=== PATIENT | male | born 1945 | race Caucasian/White ===

== ENCOUNTER 2020-12-15 11:13 | Outpatient (REF) | payer MEDICARE, SELFPAY ==
[2020-12-15 13:54] LABS: MANUAL DIFF FLAG NO
[2020-12-15 14:04] LABS: Basophils Percent Auto 0.6 % (0-2); Eosinophils Absolute Auto 0.3 X10*3/uL (0.0-0.4); Eosinophils Percent Auto 4.1 % (0-4); Hematocrit 39.8 % (42-52); Hemoglobin 13.2 g/dl (14.0-18.0); Imm Gran Abs Auto 0.04 X10*3/uL (0.00-0.03); Imm Gran Pct Auto 0.6 % (0.0-0.4); Lymphocytes Absolute Auto 1.7 X10*3/uL (1.2-4.9); Lymphocytes Percent Auto 23.6 % (20-40); Mean Corpuscular HGB Conc 33.2 g/dl (31.0-36.0); Mean Corpuscular Hemoglobin 31.6 pg (27.0-33.0); Mean Corpuscular Volume 95.2 fL (80-98); Mean Platelet Volume 11.8 fL (9.4-12.4); Monocytes Percent Auto 14.1 % (2-11); Platelet Count 176 X10*3/uL (160-400); Red Blood Count 4.18 X10*6/uL (4.60-5.80); Red Cell Distribution Width 14.3 % (11.0-16.0); White Blood Count 7.1 X10*3/uL (4.8-10.8)
[2020-12-15 14:13] LABS: Estimated Average Glucose 123 mg/dL; Hemoglobin A1c % 5.9 %
[2020-12-15 14:40] LABS: Alanine Aminotransferase 13 U/L (0-40); Alkaline Phosphatase 92 U/L (39-117); Anion Gap 15 (12-20); Aspartate Amino Transferase 16 U/L (5-37); Bilirubin Total 0.4 mg/dL (0.0-1.0); Blood Urea Nitrogen 19 mg/dL (9-16); Calcium 8.5 mg/dL (8.4-10.2); Carbon Dioxide 23 mmol/L (22-29); Chloride 108 mmol/L (96-108); Cholesterol 255 mg/dL; Estimated Glomerular Filt Rate 54; Glucose Fasting 114 mg/dL (60-99); HDL Cholesterol 37 mg/dL; LDL Cholesterol Calculated 174 mg/dl; Potassium 4.6 mmol/L (3.3-5.1); Sodium 141 mmol/L (135-145); Total Protein 6.4 g/dL (6.5-8.0); Triglycerides 220 mg/dL
[2020-12-15 15:31] LABS: Creatinine Urine 181.46 mg/dL; Microalbum/Creatinine Ratio Ur 9.9 ug/mg cr
== END 2020-12-15 11:14 | disposition home or self-care (01) ==
LOC: HO.10HDL 11:13
PROVIDERS: Visit Provider Nurse Practitioner Family
DX: D22.9 Melanocytic nevi, unspecified (principal)
CPT/HCPCS: 36415; 80053; 80061; 82043; 83036; 85025

== ENCOUNTER 2022-03-08 13:57 | Outpatient (REF) | payer MEDICARE, SELFPAY ==
--- NOTE | ~2022-03-08 | MR_ITS ---
MRI OF THE BRAIN WITHOUT IV CONTRAST INDICATION: Amnesia. COMPARISON: None available. TECHNIQUE: Multiplanar multisequence MR imaging of the brain was obtained without IV contrast. FINDINGS: There is no hydrocephalus, extra-axial surface collection, or herniation. There is global cerebral volume loss, there is mild chronic microangiopathy, and there are chronic infarcts within the left cerebellum, the left occipital lobe, and the left parietal lobe. The major flow voids at the skull base are preserved. There is no acute infarct on diffusion-weighted imaging. There is no intracranial hemorrhage on the gradient recalled echo acquisition. The midline structures are normal. The cerebellar tonsils are normally positioned. The cerebellum and brainstem are normal. The craniocervical junction is normal. Osseous marrow signal intensity is homogenous. The visualized soft tissues are unremarkable. 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 MR/MR head/brain wo con IMPRESSION: - No acute intracranial findings. - There is global cerebral volume loss, there is mild chronic microangiopathy, and there are chronic infarcts within the left cerebellum, the left occipital lobe, and the left parietal lobe. 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
--- NOTE | 2022-03-08 14:16 | ECG_ITS ---
Test Reason : r00.1 Blood Pressure : / mmHG Vent. Rate : 058 BPM Atrial Rate : 058 BPM P-R Int : 000 ms QRS Dur : 096 ms QT Int : 410 ms P-R-T Axes : 000 -46 190 degrees QTc Int : 402 ms Likely sinus rhythm Premature atrial complexes Left axis deviation Inferior infarct , age undetermined Anterior infarct , age undetermined T wave abnormality, consider lateral ischemia Abnormal ECG No previous ECGs available Referred By: Wesly Hanna Electronically Signed By:OLINDA NEWELL
[2022-03-08 14:19] LABS: MANUAL DIFF FLAG NO
[2022-03-08 14:29] LABS: Basophils Percent Auto 0.6 % (0-2); Eosinophils Absolute Auto 0.2 X10*3/uL (0.0-0.4); Eosinophils Percent Auto 3.7 % (0-4); Hematocrit 42.7 % (42.0-52.0); Hemoglobin 14.6 g/dl (14.0-18.0); Imm Gran Abs Auto 0.04 X10*3/uL (0.00-0.03); Imm Gran Pct Auto 0.6 % (0.0-0.4); Lymphocytes Absolute Auto 1.7 X10*3/uL (1.2-4.9); Lymphocytes Percent Auto 25.8 % (20-40); Mean Corpuscular HGB Conc 34.2 g/dl (31.0-36.0); Mean Corpuscular Hemoglobin 32.3 pg (27.0-33.0); Mean Corpuscular Volume 94.5 fL (80.0-98.0); Mean Platelet Volume 11.5 fL (9.4-12.4); Monocytes Absolute Auto 0.8 X10*3/uL (0.1-1.2); Monocytes Percent Auto 12.3 % (2-11); Neutrophils Absolute Auto 3.7 x10*3/uL (2.0-8.3); Platelet Count 151 X10*3/uL (160-400); Red Blood Count 4.52 X10*6/uL (4.60-5.80); Red Cell Distribution Width 14.1 % (11.0-16.0); White Blood Count 6.5 X10*3/uL (4.8-10.8)
[2022-03-08 14:56] LABS: Alanine Aminotransferase 20 U/L (0-40); Albumin Level 3.8 g/dL (3.5-5.0); Alkaline Phosphatase 128 U/L (39-117); Anion Gap 13 (12-20); Aspartate Amino Transferase 24 U/L (5-37); Bilirubin Total 0.6 mg/dL (0.0-1.0); Blood Urea Nitrogen 14 mg/dL (9-16); Calcium 8.7 mg/dL (8.4-10.2); Carbon Dioxide 24 mmol/L (22-29); Chloride 107 mmol/L (96-108); Cholesterol 129 mg/dL; Estimated Glomerular Filt Rate 51; Glucose Random 129 mg/dL (60-115); HDL Cholesterol 32 mg/dL; LDL Cholesterol Calculated 71 mg/dl; Potassium 4.8 mmol/L (3.3-5.1); Sodium 139 mmol/L (135-145); Total Protein 6.1 g/dL (6.5-8.0); Triglycerides 131 mg/dL
[2022-03-08 15:01] LABS: Estimated Average Glucose 126 mg/dL
[2022-03-08 15:17] LABS: Prostate Specific Antigen Scr 1.42 ng/mL (<0.05-4.0); TSH reflex Free T4 3.07 uIU/mL (0.32-4.0)
== END 2022-03-08 13:58 | disposition home or self-care (01) ==
LOC: HO.MRI 13:57
PROVIDERS: PCP Internal Medicine; Visit Provider Nurse Practitioner Family
DX: Z00.00 Encounter for general adult medical examination without abnormal findings (principal); Z12.5 Encounter for screening for malignant neoplasm of prostate; R41.3 Other amnesia; R00.1 Bradycardia, unspecified; R01.1 Cardiac murmur, unspecified; E78.00 Pure hypercholesterolemia, unspecified; I10 Essential (primary) hypertension; E11.9 Type 2 diabetes mellitus without complications
CPT/HCPCS: 36415; 70551; 80053; 80061; 83036; 84153; 84443; 85025; 93005

== ENCOUNTER 2022-05-22 09:20 | Day surgery (SDC) | payer MEDICARE, SELFPAY ==
[2022-05-16 09:34] VITALS: BMI 37.5
--- NOTE | 2022-05-18 09:30 | MHC.SHP ---
Pre-Procedural Eval Section A Date of Service: 05/18/22 The patient is an INPATIENT: No Changes since office visit: No Cold of Flu in the past 2 weeks, No New Medical Problems, No Changes in Medication and No Patient answered all questions The History & Physical has been completed within 30 days and I have reviewed it.: Yes Section B Chief Complaint: cataract Allergies: Allergies Allergy/AdvReac Type Severity Reaction Status Date / Time lisinopril AdvReac Intermediate Cough Verified 05/16/22 09:46 Plan Diagnosis/Plan: Unchanged I have reviewed the history and physical and performed a pertinent physical examination on my patient. No changes have occurred unless specified.
--- NOTE | 2022-05-19 10:13 | P.CONAN_ITS ---
Documented by User: Felecia Munguia NP 05/19/22 10:14 HPI - Anesthesia Eval Consult details Narrative: 77yo M for Right Cataract Extraction IOL Insertion PCP cleared No previous cataract on record [facility] Active Problems Active Problems: All Active Problems (Updated 05/16/22 @ 13:33 by CHASE Sebastian) Obesity (BMI 30-39.9) (Acute) Preoperative clearance (Acute) Physical exam (Acute) Hypertension (Acute) Diabetes mellitus type II, controlled, with no complications (Acute) Cataract, bilateral (Acute) Bradycardia (Acute) Murmur (Acute) Memory loss (Acute) History of coronary artery bypass graft (Acute) Alzheimer disease (Acute) Encounter for diabetic foot exam (Acute) Wound of skin (Acute) Atypical mole (Acute) Past Medical History Medical History Alzheimer disease Atypical mole DM type 2 (diabetes mellitus, type 2) Encounter for diabetic foot exam History of CVA in adulthood History of falling Skin cancer Wound of skin Family History Family History Mother Alzheimer's dementia Father Parkinson's disease Surgical History Surgical History History of heart bypass surgery History of intravascular stent placement Social History Social History Housing: House Are you a primary pediatric critical care nurse to a significant other at home: No Do you presently have visiting nurse or other home services: Yes (Home Health Aides) Alcohol intake: never Patient Tobacco Use Status: Never used Tobacco e-Cigarette/Vaping Use: Never Used Second Hand Smoke Exposure: No Use of substances other than those prescribed or required for medical reasons: No Have you been hit, kicked, punched, or otherwise hurt by someone within the past year? If so, by whom?: No Are you DNR?: No Advance Directives: No Advance Directives Information Provided: Yes (Given to daughter) Advance Directives on File: No Recently lost weight without trying: No Eating poorly because of decreased appetite: No Nutrition Risks: No Nutritional Risk service: No Current occupational status: retired Cognitive needs: No Hearing needs: No Vision needs: Yes (Glasses) Meds Allergies Allergy/AdvReac Type Severity Reaction Status Date / Time lisinopril AdvReac Intermediate Cough Verified 05/16/22 09:46 Home Medications Medication Instructions Recorded Confirmed Last Taken Type aspirin 81 mg tablet,delayed 81 mg PO DAILY 04/19/22 05/16/22 Unknown History release donepezil 5 mg tablet 5 mg PO DAILY 04/19/22 05/16/22 Unknown History Exam Exam Date and Time: May 19, 2022 1013 Height,Weight and Vital Signs: Height 5 ft 3 in Weight 96.162 kg Pertinent Lab Results Pertinent Lab Results: Laboratory Tests 03/08/22 03/08/22 14:17 14:17 WBC 6.5 Hgb 14.6 Hct 42.7 Plt Count 151 L Sodium 139 Potassium 4.8 Chloride 107 Carbon Dioxide 24 BUN 14 Creatinine 1.35 Assessment and Plan Assessment Anesthesia Assessment: Chart Reviewed Documented by User: Lacy Landaverde MD 05/22/22 14:28 HPI - Anesthesia Eval Consult details Narrative: 77yo M for Right Cataract Extraction IOL Insertion PCP cleared No previous cataract on record Addendum. 12:28pm- Patient here for cataract surgery. Afib on monitor. Confirmed on 12 lead EKG. New onset. Patient had appointment to see cardiology in June for new onset heart murmur. EKG 03/08/22 ?Likely sinus rhythm. Premature atrial complexes. Left axis deviation.Inferior infarct , age undetermined.Anterior infarct , age undetermined. T wave abnormality, consider lateral ischemia. Abnormal ECG.No previous ECGs available. Patient recently diagnosed with dementia. Does not know why he's here. Also in termittent coughing. I am concerned about patient being co-operative enough to remain still for surgery and may need general anesthesia. Discussed with senior [employer] network engineer and agrees that it would be more prudent for patient to be worked up and optimized before elective surgery. Primary care doctor informed. [facility] Past Medical History Medical History Alzheimer disease Atypical mole DM type 2 (diabetes mellitus, type 2) Encounter for diabetic foot exam History of CVA in adulthood History of falling Skin cancer Wound of skin Family History Family History Mother Alzheimer's dementia Father Parkinson's disease Family history of problems with anesthesia: No (per patient's daughter) Surgical History Surgical History History of heart bypass surgery History of intravascular stent placement History of Problems with Anesthesia: No (Per patient's daughter) Social History Social History Housing: House Are you a primary pediatric critical care nurse to a significant other at home: No Do you presently have visiting nurse or other home services: Yes (Home Health Aides) Alcohol intake: never Patient Tobacco Use Status: Never used Tobacco e-Cigarette/Vaping Use: Never Used Second Hand Smoke Exposure: No Use of substances other than those prescribed or required for medical reasons: No Have you been hit, kicked, punched, or otherwise hurt by someone within the past year? If so, by whom?: No Are you DNR?: No Advance Directives: No Advance Directives Information Provided: Yes (Given to daughter) Advance Directives on File: No Recently lost weight without trying: No Eating poorly because of decreased appetite: No Nutrition Risks: No Nutritional Risk service: No Current occupational status: retired Cognitive needs: No Hearing needs: No Vision needs: Yes (Glasses) Meds Allergies Allergy/AdvReac Type Severity Reaction Status Date / Time lisinopril AdvReac Intermediate Cough Verified 05/16/22 09:46 Home Medications Medication Instructions Recorded Confirmed Last Taken Type aspirin 81 mg tablet,delayed 81 mg PO DAILY 04/19/22 05/16/22 Unknown History release donepezil 5 mg tablet 5 mg PO DAILY 04/19/22 05/16/22 Unknown History Exam Airway Mallampati Class: II TM Dist: >3cm Neck ROM: Full Heart: Irregularly irregular Lungs: ? Occasional wheeze Assessment and Plan Assessment Anesthesia Assessment: Anesthesia Plan Discussed (Patient with newly diagnosed dementia. Does not know why he is here or his medical history. Does not know he has had bypass surgery. His daughter is here with him and states that he signs his own permits. Will have him sign and his daughter cosign. Discussed with Vera Valiente & Zuly. Ok to procee) Final Anesthetic Review Family History of Problems with Anesthesia: No (per patient's daughter) History of Problems with Anesthesia: No (Per patient's daughter) NPO: Yes ASA Class: III Final Preanesthetic Review: No Changes in Pt Med Stat, Meds/Allgs Chart Reviewed, Consent Obtained/Reviewed and Anes Risks/Benef Reviewed Patient Risk: High Procedure Risk: Low Assessment/Block/Sedation in SS: Assess/Block/Sedation-SS Anesthetic Plan Anesthetic Plan: GA and MAC:
--- NOTE | 2022-05-22 | ECG_ITS ---
Test Reason : RHYTHM CHECK Blood Pressure : / mmHG Vent. Rate : 047 BPM Atrial Rate : 000 BPM P-R Int : 000 ms QRS Dur : 094 ms QT Int : 454 ms P-R-T Axes : 000 -36 196 degrees QTc Int : 401 ms Atrial fibrillation with slow ventricular response Left axis deviation Inferior infarct (cited on or before 08-MAR-2022) Anterior infarct (cited on or before 08-MAR-2022) T wave abnormality, consider lateral ischemia Abnormal ECG When compared with ECG of 08-MAR-2022 14:17, Atrial fibrillation has replaced Normal sinus rhythm Referred By: Lacy Landaverde Electronically Signed By:ASAD FIELDS MD
[2022-05-22 10:48] VITALS: BP 113/62; PULSE 59; RESP 18; TEMP 36.4; O2SAT 97
[2022-05-22] MEDS: Tetracaine HCl/PF 0.5% Oph Sol 4 ML DROPS 1 DROP EYE-RIGHT (10:53)
[2022-05-22] MEDS: Cyclopentolate 1 % Ophth Sol 2 ML DRPBTL 1 DROP EYE-RIGHT ×3 (10:55→11:03)
[2022-05-22] MEDS: Tropicamide 1 % Ophth Sol 3 ML BTL 1 DROP EYE-RIGHT ×2 (10:56→11:00)
[2022-05-22] MEDS: Phenylephrine HCL 2.5% Oph SoL 2 ML BOTTLE 1 DROP EYE-RIGHT ×3 (10:58→11:06)
[2022-05-22] MEDS: Lactated Ringers 500 ML 50 ML IV (11:13)
--- NOTE | 2022-05-22 12:03 | HO.PNOPHT ---
Ophthalmology Procedure Procedure Date of Service: 05/22/22 Ophthalmology Viscoelastic: Healon Duefrantz Dual Pack Pro Ophthalmology Lenses: LUC [id number]
--- NOTE | 2022-05-22 13:20 | PC.NURSE ---
3 Lead EKG appeared patient to be afib, BBB, with inverted T waves. Extensive heart history. Dr Landaverde notified, EKG from 02/2022 pulled up for comparison. 12 lead EKG performed at bedside - new onset afib noted. After discussion between Dr Landaverde, PCP Dr Thibodeaux & Dr Rae d/t possible need of general anesthesia- patient cancelled for further cardiac workup.
== END 2022-05-22 18:04 | disposition home or self-care (01) ==
LOC: HO.SSS 09:21
PROVIDERS: PCP Internal Medicine; Visit Provider Ophthalmology
DX: H25.11 Age-related nuclear cataract, right eye (principal); Z53.8 Procedure and treatment not carried out for other reasons; R94.31 Abnormal electrocardiogram [ECG] [EKG]
CPT/HCPCS: 93005; J3300

== ENCOUNTER → 2022-06-27 14:07 | Outpatient (BNVA) | payer MEDICARE, SELFPAY | PROVIDERS: PCP Internal Medicine; Referring Provider Internal Medicine; Visit Provider Internal Medicine | DX: Z01.810 Encounter for preprocedural cardiovascular examination (principal); I25.10 Atherosclerotic heart disease of native coronary artery without angina pectoris; I48.19 Other persistent atrial fibrillation; Z95.1 Presence of aortocoronary bypass graft | CPT/HCPCS: 99202 ==

== ENCOUNTER → 2022-07-24 12:57 | Outpatient (REF) | payer MEDICARE, SELFPAY ==
--- NOTE | 2022-07-24 13:01 | CA_ITS ---
Transthoracic Echocardiogram Patient (Last, First, Middle): Jeffery Warren, Gender: Male Date of : 1945 Age: 77 Procedure Date: 07/24/2022 Procedure Type: Transthoracic Echocardiogram Location: OP Height: 162.56 cm Weight: 90.72 kg BSA: 1.96 m2 Heart Rate: 46 bpm BP: 110 / 80 mmHg Director Insurance: SANJANA Referring MD: Gume Toth MD Serv[employer]en[employer] Administrator Developer: Alvino Rae MD Symptoms: I25.10 - Atherosclerotic heart disease of yocha dehe coronary artery without... Study Quality: Poor/Contrast ECG Rhythm: Atrial Fibrillation Conclusions: - 1. Technically limited study despite use of contrast agent. 2. LV systolic function appears mildly depressed with LVEF of 45 50% with regional wall motion abnormality suggestive underlying coronary artery disease 3. [id number] aortic stenosis 4. Possible mild enlargement of left atrium Findings Procedure Information Contrast agent, definity, is being given per protocol without apparent complications. Left Ventricle The left ventricle was not well visualized. Normal left ventricular cavity size. There is normal left ventricular wall thickness. The left ventricular systolic function is mildly decreased. The visually estimated ejection fraction is between 45-50%. Diastolic function is indeterminate on the basis of available data. Wall Motion Rest Echo Findings The apex segment is akinetic. All other scored wall segments showed normal motion. Right Ventricle The right ventricle was not well visualized. Atria The left atrium is mildly dilated. Interatrial shunt cannot be excluded. The right atrium was not well visualized. Aortic Valve The aortic valve was not well visualized. There is moderate calcification of the aortic valve. There is mild to moderate aortic valve stenosis. There is no aortic valve regurgitation. Mitral Valve The mitral valve was not well visualized. There is mild mitral annular calcification. There is trace mitral valve regurgitation. There is no mitral valve stenosis. Pulmonic Valve The pulmonic valve was not well visualized. Tricuspid Valve Tricuspid regurgitation envelope is inadequate for calculation of right ventricular systolic pressure. Normal right atrial pressure. Great Vessels The aorta was not well visualized. The pulmonary artery was not well visualized. Venous The inferior vena cava is normal in size and collapses greater than 50% with inspiration. Pericardium/Pleural The pericardium was not well visualized. Prior Study Comparison No prior study available for comparison. Measurements 2D Linear Measurements IVSd: 1.08 0.6-0.9/0.6-1.0 cm LVIDd: 4.38 3.9-5.3/4.2-5.9 cm LVIDd Index: 2.23 2.4-3.2/2.2-3.1 cm/m2 LVIDs: 3.32 2.0-3.6 cm LVPWd: 1.10 0.7-1.1 cm LA Diam: 3.60 2.7-3.8/3.0-4.0 cm LAIDs Index: 1.84 1.5-2.3 cm/m2 LV Mass: 206.20 67-162/88-224 g LV Mass Index: 105.21 43-95/49-115 g/m2 LVOT Diam: 2.20 3.0+(-)1.3 cm Mitral Valve MV Pk E: 0.97 MV Decel Time: 262.00 PHT: 77.00 MVA PHT: 2.86 Decel Wallace: 3.69 Aortic Valve AoV Pk Wade: 2.56 AoV Mn Wade: 1.78 AoV VTI: 0.54 AoV Pk Grad: 26.00 Aov Mn Grad: 15.00 GONZALO Cont.VTI: 1.46 LVOT LVOT Pk Wade: 0.96 LVOT Mn Wade: 0.66 LVOT VTI: 0.21 LVOT Pk Grad: 4.00 LVOT Mn Grad: 2.00 LVOT Diam: 2.20 LVOT Area: 3.80 Diastolic Function MV Pk E: 0.97 Right Ventricle TAPSE (mm): 10.70 TVS' Wade: 5.50 Tricuspid Valve RA Press: 3.00 Great Vessels Aorta Sinus of Valsalva: 3.70 2.0-3.5 cm Ao Asc: 3.60 2.1-3.4 cm Pulmonary Valve PV Pk Wade: 0.92 Peak PV Grad: 3.00 Updated in Other Vendor System with Status of Final Alvino Rae MD electronically signed on 07/24/2022 5:59:44 PM with status of Final
--- NOTE | 2022-07-24 13:02 | HM_ITS ---
Conclusion: 1. Patient was monitored for total period of 3 days. 2. Baseline rhythm was atrial fibrillation with lowest heart rate of 32 beats per minute with average heart of 52 beats per minute on the bradycardic side with frequent atrial fibrillation with slow ventricular response 3. Multiple pauses greater than 2.5 seconds noted with no significant pauses greater than 5 seconds noted with longest pause of 3.5 seconds happening at 12:54 4. Total of 1279 PVCs accounting for 0.56% of total burden account for occasional PVCs 5. Multiple short salvos of nonsustained VT, longest of 5 beats and the fastest of 4 beats at 143 beats per minute, could represent AFib with aberrancy 6. No patient reported events MTDD
== END ==
LOC: HO.CARD 12:57
PROVIDERS: PCP Internal Medicine; Visit Provider Internal Medicine
DX: I48.19 Other persistent atrial fibrillation (principal)
CPT/HCPCS: 93242; 93306; Q9957

== ENCOUNTER → 2022-08-01 10:33 | Outpatient (REF) | payer MEDICARE, SELFPAY ==
--- NOTE | ~2022-08-01 | NM_ITS ---
Myocardial perfusion study Indication: Persistent atrial fibrillation to evaluate for myocardial ischemia Technique: The patient was brought in for a Lexiscan perfusion study on 08/01/2022. Patient performed low-level exercise and was injected 0.4 mg of Lexiscan intravenously. Within a minute of injection, 30 mCi of sestamibi was given intravenously. Images were obtained using the SPECT gamma camera interlaced with the gating device. Images were obtained in supine position. Resting perfusion study was performed on 08/02/2022. Patient was administered 30 mCi of sestamibi intravenously at rest. Images were then obtained in supine position. Images obtained with and without CT attenuation. Total DLP 94 mGycm. Images were processed with the software and compared side to side in short axis, horizontal long axis and vertical long axis views. Findings: The stress perfusion study showed non attenuated images show large area of absent uptake in the apex and adjacent inferoapical wall of the LV myocardium. Is also mildly reduced uptake in the basal and mid inferior as well as inferolateral wall of the LV myocardium. Attenuation corrected images show large area of absent uptake in the apex and adjacent anteroapical and inferoapical wall of the LV myocardium there is minimally reduced uptake in the inferolateral wall of the LV myocardium.. The gated study shows normal LV systolic function with calculated LVEF of 59%. LV cavity is mildly dilated size. The gated study shows reduced wall thickening and contraction of apical segments. Resting study shows non attenuated images show large area of absent uptake the apex and adjacent inferoapical wall with some improvement in the anteroapical wall of the LV myocardium. Mildly reduced uptake in the inferior as well as inferolateral wall of the LV myocardium. Attenuation corrected images shows large area of absent uptake in the apex and inferoapical wall of the LV myocardium with some element in the anterior portion of the apical wall.. Gating at rest reveals apical wall motion abnormality with ejection fraction at 67%. The findings are consistent with large area of transmural infarct of the apex and adjacent inferoapical wall with some trang-infarct ischemia with nontransmural infarct of the inferolateral wall.. NM/NM cardiolite stress test Impression: 1. Myocardial perfusion imaging study shows large transmural infarct of the apex and inferoapical wall with some trang-infarct ischemia 2. Gated LVEF is 59% with stress and 67% with stress 3. Transient ischemic dilatation present EKG is nondiagnostic for ischemia
--- NOTE | 2022-08-01 10:35 | CA_ITS ---
Acquisition Time: 2022-08-01 10:40:09 Total Exercise Time: 00:02:00 Test Indications: Abnormal ECG Medications: ASA ATORVASTATIN CARVEDILOL HCTZ DONAPAZIL Protocol: LEXISCAN Max HR: 082 BPM 57% of Pred: 142 BPM Max BP: 122/074 mmHG Max Work Load: 1.0 METS Pharmacological stress test with Lexiscan injection, while sitting and kicking his legs and moving right arm, without anginal symptoms, with isolated PVCs, with normotensive response to injection, with nondiagnostic EKG for ischemia. Nuclear images pending. Test reviewed with Dr Toth. Referred By: Gume Toth Overread By: NAILA JEFFERSON
== END ==
LOC: HO.CARD 10:33
PROVIDERS: Visit Provider Internal Medicine
DX: I48.91 Unspecified atrial fibrillation (principal); Z95.1 Presence of aortocoronary bypass graft
CPT/HCPCS: 78452; 93017; A9500; J0280; J2785

== ENCOUNTER → 2022-08-23 15:06 | Outpatient (BNVA) | payer MEDICARE, SELFPAY | PROVIDERS: PCP Internal Medicine; Referring Provider Internal Medicine; Visit Provider Internal Medicine | DX: Z01.810 Encounter for preprocedural cardiovascular examination (principal); I25.10 Atherosclerotic heart disease of native coronary artery without angina pectoris; I48.19 Other persistent atrial fibrillation; Z95.1 Presence of aortocoronary bypass graft; Z95.5 Presence of coronary angioplasty implant and graft | CPT/HCPCS: 99212 ==

== ENCOUNTER 2023-02-12 11:33 | Outpatient (REF) | payer MEDICARE, SELFPAY ==
[2023-02-12 11:54] LABS: MANUAL DIFF FLAG NO
[2023-02-12 12:47] LABS: Basophils Percent Auto 0.4 % (0-2); Eosinophils Absolute Auto 0.2 X10*3/uL (0.0-0.4); Eosinophils Percent Auto 2.8 % (0-4); Hemoglobin 14.7 g/dl (14.0-18.0); Imm Gran Abs Auto 0.02 X10*3/uL (0.00-0.03); Imm Gran Pct Auto 0.3 % (0.0-0.4); Lymphocytes Absolute Auto 1.6 X10*3/uL (1.2-4.9); Lymphocytes Percent Auto 22.2 % (20-40); Mean Corpuscular HGB Conc 34.2 g/dl (31.0-36.0); Mean Corpuscular Hemoglobin 32.5 pg (27.0-33.0); Mean Corpuscular Volume 95.1 fL (80.0-98.0); Mean Platelet Volume 10.9 fL (9.4-12.4); Monocytes Absolute Auto 0.9 X10*3/uL (0.1-1.2); Monocytes Percent Auto 12.1 % (2-11); Neutrophils Absolute Auto 4.4 x10*3/uL (2.0-8.3); Neutrophils Percent Auto 62.2 % (45-73); Platelet Count 175 X10*3/uL (160-400); Red Blood Count 4.52 X10*6/uL (4.60-5.80); Red Cell Distribution Width 14.6 % (11.0-16.0); White Blood Count 7.1 X10*3/uL (4.8-10.8)
[2023-02-12 12:54] LABS: Estimated Average Glucose 131 mg/dL; Hemoglobin A1c % 6.2 %
[2023-02-12 13:17] LABS: Anion Gap 13 (12-20); Blood Urea Nitrogen 13 mg/dL (9-16); Calcium 8.6 mg/dL (8.4-10.2); Carbon Dioxide 22 mmol/L (22-29); Chloride 108 mmol/L (96-108); Estimated Glomerular Filt Rate > 60; Glucose Random 109 mg/dL (60-115); Potassium 4.3 mmol/L (3.3-5.1); Sodium 139 mmol/L (135-145)
== END 2023-02-12 11:34 | disposition home or self-care (01) ==
LOC: HO.LAB 11:33
PROVIDERS: PCP Internal Medicine; Visit Provider Internal Medicine
DX: R73.9 Hyperglycemia, unspecified (principal); D64.9 Anemia, unspecified; I10 Essential (primary) hypertension
CPT/HCPCS: 36415; 80048; 83036; 85025

== ENCOUNTER 2023-06-04 13:30 | Outpatient (AMB) | payer MEDICARE, SELFPAY ==
--- NOTE | 2023-06-04 13:37 | MHC.PC.OV ---
Vital Signs 06/04/23 13:38 Height 5 ft 3 in Weight 210 lb 4 oz BMI 37.2 BP 120/78 Blood Pressure Location Lt brachial Position Sitting Pulse 65 Pulse Source Pulse Oximeter Pulse Oximetry (%) 96 Oxygen Delivery Method Room Air Intake Visit Reasons: declining health Intake Note: Patient is here to follow up on decline of health. Stylist Assistant Required: No Hourly Manager: Present Accompanied by: Daughter Allergies lisinopril Adverse Reaction (Intermediate, Verified 06/04/23 13:38) Cough Medication List - Last Reconciled 06/04/23 by Roberto Thibodeaux MD atorvastatin 80 mg PO DAILY carvedilol (Coreg) 3.125 mg PO ONCE donepezil 5 mg PO DAILY hydrochlorothiazide 12.5 mg PO DAILY metformin 250 mg (1/2 x 500 mg) PO DAILY rivaroxaban (Xarelto) 20 mg PO QPM Tobacco use date assessed: 06/04/23 Fall risk assessment: No Falls in past year Last assessed Fall Risk: 06/04/23 Dental Screening Dental Screen Date: 06/04/23 Did you have a dental visit in the last 12 months?: No Did you have a dental problem in the last 6 months where you did not have access to dental care?: No Was dental information given to patient?: No HPI declining health HPI Details poorly complint DM and afib; has dementia and does not take his meds regularly; stubborn; daughter trying but difficult [facility] Medical History Alzheimer disease Atypical mole DM type 2 (diabetes mellitus, type 2) Encounter for diabetic foot exam History of CVA in adulthood History of falling Persistent atrial fibrillation Skin cancer Wound of skin Surgical History History of heart bypass surgery History of intravascular stent placement Family History (Updated 06/04/23 @ 13:37 by SHANNON Mary) Mother Alzheimer's dementia Father Parkinson's disease Other Mental health disorder Social History Housing: House Are you a primary director of home care hospice to a significant other at home: No Do you presently have visiting nurse or other home services: Yes (Home Health Aides) Alcohol intake: never Patient Tobacco Use Status: Never used Tobacco e-Cigarette/Vaping Use: Never Used Second Hand Smoke Exposure: Yes service: No Current occupational status: retired Cognitive needs: Yes (Cane) Hearing needs: No Vision needs: Yes (Glasses) Questionnaire PHQ-9 Over the last 2 weeks, how often have you been bothered by any of the following problems? Depression Screening Interpretation: Negative Source: Developed by Drs. Murtaza Thakur, Angle Jackson, David Morales and colleagues, with an educational damari from [employer]. Thrive Questionnaire Date Thrive assessed: 12/18/22 Currently or been in a relationship where the following occur: no concerns reported KENTON-7 AMB Questionnaire KENTON-7 Date KENTON - 7 assessed: 12/18/22 Source: Developed by Drs. Murtaza Thakur, Angle Jackson, David Morales and colleagues, with an educational damari from [employer]. Review of Systems Const Denies chills, Denies headache(s) and Denies weight loss ENT Denies headache(s) Card Denies chest pain, Denies syncope, Denies irregular heart rhythm and Denies dyspnea Resp Denies chest congestion, Denies cough and Denies dyspnea GI Denies abdominal pain, Denies change in stool character, Denies nausea and Denies vomiting Musc Denies deformity and Denies joint swelling Neuro Denies syncope and Denies headache(s) Physical exam (Primary Care) Vital Signs: Last Vital Signs Pulse 65 06/04/23 13:38 BP 120/78 06/04/23 13:38 Pulse Ox 96 06/04/23 13:38 Oxygen Delivery Method Room Air 06/04/23 13:38 BMI result Body Mass Index 37.2 Tobacco/Smoking Status: Tobacco use Status Tobacco use date assessed 06/04/23 06/04/23 13:44 Patient Tobacco Use Status Never used Tobacco 06/04/23 13:44 e-Cigarette/Vaping Use Never Used 06/04/23 13:44 Depression Screening Interpretation: Negative Thrive Assessment: Date of Thrive Assessment Date Thrive assessed 12/18/22 06/04/23 13:44 Currently or been in a relationship where the following occur: no concerns reported Const General: cooperative, comfortable and no acute distress Chest Chest palpation & inspection: normal inspection of the chest Resp Effort & Inspection: normal respiratory effort Auscultation: clear to auscultation bilaterally Percussion: percussion normal Cardio Jugular venous distension: no JVD GI Inspection: Yes normal to inspection Assessment and Plan Assessment & Plan (1) Hyperlipidemia: Code(s): E78.5 - Hyperlipidemia, unspecified Plan: same rx (2) Persistent atrial fibrillation: Code(s): I48.19 - Other persistent atrial fibrillation Plan: see cardiology to reassess whether rx needed (3) Alzheimer disease: Code(s): G30.9 - Alzheimer's disease, unspecified; F02.80 - Dementia in other diseases classified elsewhere, unspecified severity, without behavioral disturbance, psychotic disturbance, mood disturbance, and anxiety Plan: stable Orders: Referrals Cardiology Referral I48.19 - Other persistent atrial fibrillation Coding Level of Care Code Est Pt Level 4 (44252) Diagnoses Hyperlipidemia E78.5 Persistent atrial fibrillation I48.19 Alzheimer disease G30.9; F02.80
[2023-06-04 13:38] VITALS: BP 120/78; PULSE 65; O2SAT 96; BMI 37.2
== END 2023-06-04 14:05 | disposition home or self-care (01) ==
PROVIDERS: PCP Internal Medicine; Visit Provider Internal Medicine
DX: E78.5 Hyperlipidemia, unspecified (principal); I48.19 Other persistent atrial fibrillation; G30.9 Alzheimer's disease, unspecified; F02.80 Dementia in other diseases classified elsewhere, unspecified severity, without behavioral disturbance, psychotic disturbance, mood disturbance, and anxiety
CPT/HCPCS: 99214

== ENCOUNTER 2024-04-17 13:59 | Outpatient (AMB) | payer MEDICARE, SELFPAY ==
[2024-04-17 14:04] VITALS: BP 140/90; PULSE 53; O2SAT 98; BMI 36.8
--- NOTE | 2024-04-17 14:04 | A.OFFPC_ITS ---
Vital Signs 04/17/24 14:04 Height 5 ft 3 in Weight 208 lb BMI 36.8 BP 140/90 H Blood Pressure Location Lt brachial Position Sitting Pulse 53 Pulse Source Pulse Oximeter Pulse Oximetry (%) 98 Oxygen Delivery Method Room Air Intake Visit Reasons: lt ankle open cut Certified Detention Deputy Required: No Community Health Program Representative: Not Required per policy Accompanied by: Self / Same As Patient Allergies lisinopril Adverse Reaction (Intermediate, Verified 06/04/23 13:38) Cough Tobacco use date assessed: 04/17/24 Fall risk assessment: No Falls in past year Last assessed Fall Risk: 04/17/24 Dental Screening Dental Screen Date: 04/17/24 Did you have a dental visit in the last 12 months?: No Did you have a dental problem in the last 6 months where you did not have access to dental care?: No Was dental information given to patient?: Patient has dentist HPI lt ankle open cut HPI Details has abrasion with cellulitis left lower extremity PFSH Medical History Alzheimer disease Atypical mole DM type 2 (diabetes mellitus, type 2) Encounter for diabetic foot exam History of CVA in adulthood History of falling Persistent atrial fibrillation Skin cancer Wound of skin Surgical History History of heart bypass surgery History of intravascular stent placement Family History Mother Alzheimer's dementia Father Parkinson's disease Other Mental health disorder Social History Housing: House Are you a primary hospice care sales consultant to a significant other at home: No Do you presently have visiting nurse or other home services: Yes (Home Health Aides) Alcohol intake: never Comment: uses cane occasionally Patient Tobacco Use Status: Never used Tobacco e-Cigarette/Vaping Use: Never Used Second Hand Smoke Exposure: Yes service: No Current occupational status: retired Cognitive needs: Yes (Cane) Hearing needs: No Vision needs: Yes (Glasses) Questionnaire PHQ-9 Over the last 2 weeks, how often have you been bothered by any of the following problems? 1. Little interest or pleasure in doing things: not at all 2. Feeling down, depressed, or hopeless: not at all 3. Trouble falling or staying asleep, or sleeping too much: not at all 4. Feeling tired or having little energy: not at all 5. Poor appetite or overeating: not at all 6. Feeling bad about yourself - or that you are a failure or have let yourself or your family down: not at all 7. Trouble concentrating on things, such as reading the newspaper or watching television: not at all 8. Moving or speaking so slowly that other people could have noticed. Or the opposite - being so fidgety or restless that you have been moving around a lot m ore than usual: not at all 9. Thoughts that you would be better off or of hurting yourself in some way: not at all Total score: 0 Depression Screening Interpretation: Negative Depression Screening Done: Yes Source: Developed by Drs. Murtaza Thakur, Angle Jackson, David Morales and colleagues, with an educational damari from [employer]. Thrive Questionnaire Date Thrive assessed: 04/17/24 I am a: Patient What is your living situation today?: I have a steady place to live Within the past 12 months, did the food you bought not last and you didn't have the money to get more?: Never true Within the past 12 months, did you worry whether your food would run out before you got money to buy more?: Never true Do you have trouble paying for medicines?: No Do you have trouble getting transportation to medical appointments?: No Do you have trouble paying your heating and electricity bill?: No Do you have trouble taking care of your child, family member or friend?: No Do you have trouble with day-to-day activities such as bathing, preparing meals, shopping, managing finances, etc.?: No Are you currently unemployed and looking for a job?: No Are you interested in more education?: No Please select the resources that you would like help with: None THRIVE Score: 0 KENTON-7 AMB Questionnaire KENTON-7 Date KENTON - 7 assessed: 12/18/22 Source: Developed by Drs. Murtaza Thakur, Angle Jackson, David Morales and colleagues, with an educational damari from [employer]. Review of Systems Const Denies chills, Denies headache(s) and Denies weight loss ENT Denies headache(s) Card Denies chest pain, Denies syncope, Denies irregular heart rhythm and Denies dyspnea Resp Denies chest congestion, Denies cough and Denies dyspnea GI Denies abdominal pain, Denies change in stool character, Denies nausea and Denies vomiting Musc Denies deformity and Denies joint swelling Neuro Denies syncope and Denies headache(s) Physical exam (Primary Care) Vital Signs: Last Vital Signs Pulse 53 04/17/24 14:04 BP 140/90 H 04/17/24 14:04 Pulse Ox 98 04/17/24 14:04 Oxygen Delivery Method Room Air 04/17/24 14:04 BMI result Body Mass Index 36.8 Tobacco/Smoking Status: Tobacco use Status Tobacco use date assessed 04/17/24 04/17/24 14:07 Patient Tobacco Use Status Never used Tobacco 04/17/24 14:07 e-Cigarette/Vaping Use Never Used 04/17/24 14:07 PHQ-9: PHQ-9 Score PHQ-9: Total score 0 04/17/24 14:07 Depression Screening Interpretation: Negative Thrive Assessment: Date of Thrive Assessment Date Thrive assessed 04/17/24 04/17/24 14:07 Const General: cooperative, comfortable, no acute distress and alert Neck Neck: Yes no lymphadenopathy Thyroid: Thyroid normal Resp Effort & Inspection: normal respiratory effort Auscultation: clear to auscultation bilaterally Percussion: percussion normal Cardio Jugular venous distension: no JVD Palpation: normal PMI Rate: regular rate Rhythm: regular rhythm Heart sounds: S1 normal heart sound present and S2 normal heart sound present GI Inspection: Yes normal to inspection Palpation (GI): No hepatosplenomegaly present Skin Other: 2cm abrasion with surrounding erythema left calf Extrem General: Yes no clubbing, cyanosis or edema Assessment and Plan Assessment & Plan (1) Cellulitis: Code(s): L03.90 - Cellulitis, unspecified Plan: rx sent Orders: Orders AMB Hemoglobin A1c 04/17/24 E11.9 - Type 2 diabetes mellitus without complications Medications: New cephalexin 250 mg PO Q6H 20 caps 0RF Coding Level of Care Code Est Pt Level 3 (48057) Diagnoses Cellulitis L03.90
== END 2024-04-17 15:51 | disposition home or self-care (01) ==
PROVIDERS: PCP Internal Medicine; Visit Provider Internal Medicine
DX: L03.90 Cellulitis, unspecified (principal)
CPT/HCPCS: 99213

== ENCOUNTER 2024-06-20 22:27 | Emergency (ER) | payer MEDICARE, MEDICAID, SELFPAY ==
[2024-06-20 22:33] VITALS: BP 163/107; PULSE 80; RESP 18; TEMP 36.4; O2SAT 97; BMI 36.9
[2024-06-20 22:56] LABS: MANUAL DIFF FLAG NO
[2024-06-20 22:57] LABS: Basophils Percent Auto 0.4 % (0-2); Eosinophils Absolute Auto 0.1 X10*3/uL (0.0-0.4); Eosinophils Percent Auto 1.7 % (0-4); Hematocrit 43.1 % (42.0-52.0); Imm Gran Abs Auto 0.03 X10*3/uL (0.00-0.03); Imm Gran Pct Auto 0.4 % (0.0-0.4); Lymphocytes Absolute Auto 1.8 X10*3/uL (1.2-4.9); Lymphocytes Percent Auto 23.7 % (20-40); Mean Corpuscular HGB Conc 34.8 g/dl (31.0-36.0); Mean Corpuscular Hemoglobin 33.2 pg (27.0-33.0); Mean Corpuscular Volume 95.4 fL (80.0-98.0); Mean Platelet Volume 11.2 fL (9.4-12.4); Monocytes Percent Auto 12.5 % (2-11); Neutrophils Absolute Auto 4.7 x10*3/uL (2.0-8.3); Neutrophils Percent Auto 61.3 % (45-73); Platelet Count 147 X10*3/uL (160-400); Red Blood Count 4.52 X10*6/uL (4.60-5.80); Red Cell Distribution Width 13.8 % (11.0-16.0); White Blood Count 7.7 X10*3/uL (4.8-10.8)
[2024-06-20 23:04] VITALS: BP 183/98; PULSE 74; RESP 16; TEMP 36.9; O2SAT 95
[2024-06-20 23:12] LABS: Alanine Aminotransferase 8 U/L (0-40); Albumin Level 3.9 g/dL (3.5-5.0); Alkaline Phosphatase 105 U/L (39-117); Anion Gap 14 (12-20); Aspartate Amino Transferase 14 U/L (5-37); Bilirubin Total 0.5 mg/dL (0.0-1.0); Blood Urea Nitrogen 18 mg/dL (9-16); Calcium 9.4 mg/dL (8.4-10.2); Carbon Dioxide 29 mmol/L (22-29); Chloride 102 mmol/L (96-108); Creatinine Clr Calc Pharmacy 48.8; Estimated Glomerular Filt Rate 55; Glucose Random 116 mg/dL (60-115); Potassium 3.9 mmol/L (3.3-5.1); Sodium 141 mmol/L (135-145); Total Protein 6.6 g/dL (6.5-8.0)
--- NOTE | 2024-06-21 00:04 | ED.GENADULT ---
HPI - General Adult General Chief complaint: General Medical Stated complaint: cellulitis on L leg Time Seen by Provider: 06/20/24 23:53 Source: patient Mode of arrival: ambulatory Limitations: no limitations History of Present Illness ED Provider: Dr. Shanice Mckeon HPI narrative: Patient comes to the emergency room accompanied by his daughter and grandson. Patient states that he has recurrent cellulitis , last time was on the right leg, this time was on the left lower extremity. The last time, a couple of months ago he responded well to cephalexin. Patient's daughter states that patient has visiting nurses, they checked him couple of days ago, did not seem to have significant erythema and over the last couple of days, patient started having blisters and erythema. Patient states that he has no pain, states that he is able to walk without any pain. Patient denies fever chills. Related Data Home Medications ?Medication ?Instructions ?Recorded ?Confirmed donepezil 5 mg tablet 5 mg PO DAILY 04/19/22 06/04/23 carvedilol 3.125 mg tablet (Coreg) 3.125 mg PO ONCE 08/23/22 06/04/23 Previous Rx's ?Medication ?Instructions ?Recorded rivaroxaban 20 mg tablet (Xarelto) 20 mg PO QPM #90 tabs 06/27/22 atorvastatin 80 mg tablet 80 mg PO DAILY #90 tabs 12/18/22 hydrochlorothiazide 12.5 mg tablet 12.5 mg PO DAILY #30 tabs 12/18/22 metformin 500 mg tablet 250 mg (1/2 x 500 mg) PO DAILY #30 01/17/23 tabs cephalexin 250 mg capsule 250 mg PO Q6H #20 caps 04/17/24 cephalexin 500 mg capsule 500 mg PO BID #20 caps 06/21/24 doxycycline hyclate 100 mg tablet 100 mg PO BID #20 tabs 06/21/24 Allergies Allergy/AdvReac Type Severity Reaction Status Date / Time lisinopril AdvReac Intermediate Cough Verified 06/20/24 22:35 Review of Systems Review of Systems: Constitutional : No Weight loss, No Fever, No Chills, No Night Sweats, No Fatigue, No Malaise ENT/Mouth : No Hearing loss, No Ear Pain, No Nasal Congestion, No Sinus Pain, No Hoarseness, No sore throat, No Rhinorrhea, No Swallowing Difficulty Eyes: No Eye Pain, No Swelling, No Redness, No Foreign Body, No Discharge, No Vision Changes Cardiovascular : No Chest Pain, No SOB, No Dyspnea on Exertion, No Orthopnea, No Edema, No Palpitations Respiratory : No Cough, No Sputum, No Wheezing, No Smoke Exposure, No Dyspnea Gastrointestinal : No Nausea, No Vomiting, No Diarrhea, No Constipation, No abdominal Pain, No Hematochezia, No Melena Genitourinary : no irregular bleeding, No Dysuria, No Urinary Frequency, No Hematuria, No Urinary Incontinence, No Urgency, No Flank Pain, No Urinary Flow Changes, No Hesitancy Musculoskeletal : No joint pain, No Myalgias, No Joint Swelling Skin : Erythema on the left leg Neuro : No Weakness, No Numbness, No Paresthesias, No Loss of Consciousness, No Dizziness, No Headache Psych : No Anxiety/Panic, No Depression, No SI/HI/AH/VH, No Social Issues, Heme/Lymph: No Bruising, No Bleeding,No Lymphadenopathy Endocrine : No Polyuria, No Polydipsia, No Temperature Intolerance [facility] Past Medical History Medical History Persistent atrial fibrillation History of falling Skin cancer History of CVA in adulthood Alzheimer disease DM type 2 (diabetes mellitus, type 2) Encounter for diabetic foot exam Wound of skin Atypical mole Surgical History History of intravascular stent placement History of heart bypass surgery Family History Family History Mother Alzheimer's dementia Father Parkinson's disease Other Mental health disorder Social History Social History Housing: House Are you a primary rn care manager to a significant other at home: No Do you presently have visiting nurse or other home services: Yes (Home Health Aides) Alcohol intake: never Comment: uses cane occasionally Patient Tobacco Use Status: Never used Tobacco e-Cigarette/Vaping Use: Never Used Second Hand Smoke Exposure: Yes Advance Directives: No Advance Directives Information Provided: Yes Do you have a plan to hurt others: No Plan service: No Current occupational status: retired Cognitive needs: Yes (Cane) Hearing needs: No Vision needs: Yes (Glasses) Physical Exam ED Vital Signs: Vital Signs - 24 hr 06/20/24 22:33 06/20/24 23:04 Temperature 97.6 F 98.4 F Pulse Rate 80 74 Respiratory Rate 18 16 Blood Pressure 163/107 H 183/98 H Pulse Oximetry 97 95 Oxygen Delivery Method Room Air Room Air BMI result Body Mass Index 36.9 Const Other: Appearance: Alert. Oriented X3. No acute distress. Eyes: Pupils equal, round and reactive to light. ENT: Pharynx normal. Neck: Normal inspection. Neck supple. No lymph nodes noted. No crepitus CVS: Normal heart rate and rhythm. Pulses normal. Normal S1 and S2 Respiratory: No respiratory distress. Breath sounds normal. No Wheezing. No rales Abdomen: Soft and nontender. No rigidity. No distention. Skin: Skin warm and dry. Normal skin color. Normal skin turgor. Extremities: Left lower extremity from the middle of the adams down to the ankle erythematous, there are blisters in the posterior aspect filled with fluid. Chronic eschar on the anterior aspect of the lower extremity over the adams. Neuro: Oriented X 3. No motor deficit. No sensory deficit. Moving all extremities. No slurred speech. CN 2 through 12 grossly intact Psych: calm, cooperative, normal affect Medical Decision Making Medical Decision Making [facility] Narrative: My interpretation of labs: Normal hematology and chemistry. -patient's vitals are stable, sepsis is not suspected -patient responded well to Keflex, this time patient will be taking Keflex and doxycycline, 1st dose given in the ED. -observation/admission was considered. However, the patient's daughter states that the patient does much better at home -patient has no pain at all, DVT not suspected Differential Diagnosis Differential Diagnoses: The differential diagnosis associated with the presentation includes (Lower extremity cellulitis) Admission/Observation Consideration of admission/observation: Escalation of care including admission/observation considered Lab Data [facility] Lab Attestation statement: I reviewed the patient's lab results. 06/20/24 22:50 06/20/24 22:50 Labs: Lab Results 06/20/24 Range/Units 22:50 WBC 7.7 (4.8-10.8) X10*3/uL RBC 4.52 L (4.60-5.80) X10*6/uL Hgb 15.0 (14.0-18.0) g/dl Hct 43.1 (42.0-52.0) % MCV 95.4 (80.0-98.0) fL MCH 33.2 H (27.0-33.0) pg MCHC 34.8 (31.0-36.0) g/dl RDW 13.8 (11.0-16.0) % Plt Count 147 L (160-400) X10*3/uL MPV 11.2 (9.4-12.4) fL Immature Gran % (Auto) 0.4 (0.0-0.4) % Neut % (Auto) 61.3 (45-73) % Lymph % (Auto) 23.7 (20-40) % Dewitt % (Auto) 12.5 H (2-11) % Eos % (Auto) 1.7 (0-4) % Baso % (Auto) 0.4 (0-2) % Lymph # (Auto) 1.8 (1.2-4.9) X10*3/uL Dewitt # (Auto) 1.0 (0.1-1.2) X10*3/uL Eos # (Auto) 0.1 (0.0-0.4) X10*3/uL Baso # (Auto) 0.0 (0.0-0.2) X10*3/uL Abs Immat Gran (auto) 0.03 (0.00-0.03) X10*3/uL Absolute Neuts (auto) 4.7 (2.0-8.3) x10*3/uL Absolute Nucleated RBC 0.000 (0.0-0.012) X10*3/uL Nucleated RBC % (auto) 0.0 (0.0-0.2) /100WBC Sodium 141 (135-145) mmol/L Potassium 3.9 (3.3-5.1) mmol/L Chloride 102 (96-108) mmol/L Carbon Dioxide 29 (22-29) mmol/L Anion Gap 14 (12-20) BUN 18 H (9-16) mg/dL Creatinine 1.27 (0.5-1.4) mg/dL Estim Creat Clear Calc 48.8 Estimated GFR 55 Random Glucose 116 H (60-115) mg/dL Calcium 9.4 D (8.4-10.2) mg/dL Total Bilirubin 0.5 (0.0-1.0) mg/dL AST 14 (5-37) U/L ALT 8 (0-40) U/L Alkaline Phosphatase 105 (39-117) U/L Total Protein 6.6 (6.5-8.0) g/dL Albumin 3.9 (3.5-5.0) g/dL Critical Care Time Critical Care Time Critical Care Time: Yes Total Critical Care Time: 30 Attestation: I have personally provided critical care time. Time includes review of lab data, radiology results, discussion with consultants, and monitoring for potential decompensation. Intervention performed as documented. Discharge Plan Discharge Clinical Impression: Cellulitis Patient Disposition: Home, Self-Care Instructions: Cellulitis (ED) Additional Instructions: Please follow-up with your primary care physician tomorrow. If you have any worsening or new symptoms, please return to the emergency room or call 911 Prescriptions: New cephalexin 500 mg capsule 500 mg PO BID Qty: 20 0RF doxycycline hyclate 100 mg tablet 100 mg PO BID Qty: 20 0RF No Action hydrochlorothiazide 12.5 mg tablet 12.5 mg PO DAILY Qty: 30 2RF metformin 500 mg tablet 250 mg PO DAILY Qty: 30 2RF Rx Instructions: take 1/2 tablet daily with meal donepezil 5 mg tablet 5 mg PO DAILY atorvastatin 80 mg tablet 80 mg PO DAILY Qty: 90 0RF cephalexin 250 mg capsule 250 mg PO Q6H Qty: 20 0RF Xarelto 20 mg tablet 20 mg PO QPM Qty: 90 3RF Rx Instructions: must administer with evening meal carvedilol [Coreg] 3.125 mg tablet 3.125 mg PO ONCE Rx Instructions: must administer with a meal/food Print Language: Dominican
[2024-06-21] MEDS: Doxycycline Monohydrate 100 MG CAPSULE PO (00:14)
[2024-06-21] MEDS: cephALEXin 500 MG CAPSULE PO (00:14)
[2024-06-21 00:32] VITALS: BP 120/98; PULSE 74; RESP 16; TEMP 36.9; O2SAT 96
== END 2024-06-21 00:33 | disposition home or self-care (01) ==
PROVIDERS: Emergency Provider Emergency Medicine; PCP Internal Medicine
DX: L03.116 Cellulitis of left lower limb (principal); E11.9 Type 2 diabetes mellitus without complications; I48.19 Other persistent atrial fibrillation; Z86.73 Personal history of transient ischemic attack (TIA), and cerebral infarction without residual deficits; Z79.01 Long term (current) use of anticoagulants; Z79.02 Long term (current) use of antithrombotics/antiplatelets; Z79.84 Long term (current) use of oral hypoglycemic drugs; Z79.899 Other long term (current) drug therapy
CPT/HCPCS: 36415; 80053; 85025; 99282; 99283

== ENCOUNTER 2024-07-18 11:47 | Outpatient (AMB) | payer MEDICARE, MEDICAID, SELFPAY ==
--- NOTE | 2024-07-18 11:50 | MHC.PC.OV ---
Vital Signs 07/18/24 11:51 Height 5 ft 4 in Weight 193 lb BMI 33.1 BP 134/88 Blood Pressure Location Lt brachial Position Sitting Pulse 71 Pulse Source Pulse Oximeter Pulse Oximetry (%) 96 Oxygen Delivery Method Room Air Intake Visit Reasons: 3 Month F/U Intake Note: Pt refused A1C. [employer] Teammate Required: No Allergies lisinopril Adverse Reaction (Intermediate, Verified 07/18/24 11:56) Cough Medication List - Last Reconciled 07/21/24 by Roberto Thibodeaux MD atorvastatin 80 mg PO DAILY carvedilol (Coreg) 3.125 mg PO ONCE cephalexin 500 mg PO BID cephalexin 250 mg PO Q6H donepezil 5 mg PO DAILY hydrochlorothiazide 12.5 mg PO DAILY metformin 250 mg (1/2 x 500 mg) PO DAILY rivaroxaban (Xarelto) 20 mg PO QPM Tobacco use date assessed: 04/17/24 Last assessed Fall Risk: 07/18/24 Dental Screening Dental Screen Date: 04/17/24 HPI 3 Month F/U HPI Details hypertension on rx; doing well PFSH Medical History Persistent atrial fibrillation History of falling Skin cancer History of CVA in adulthood Alzheimer disease DM type 2 (diabetes mellitus, type 2) Encounter for diabetic foot exam Wound of skin Atypical mole Surgical History History of intravascular stent placement History of heart bypass surgery Family History Mother Alzheimer's dementia Father Parkinson's disease Other Mental health disorder Social History Housing: House Are you a primary zoo caretaker to a significant other at home: No Do you presently have visiting nurse or other home services: Yes (Home Health Aides) Alcohol intake: never Comment: uses cane occasionally Patient Tobacco Use Status: Never used Tobacco Tobacco use type: Cigarette e-Cigarette/Vaping Use: Never Used Second Hand Smoke Exposure: Yes service: No Current occupational status: retired Cognitive needs: Yes (Cane) Hearing needs: No Vision needs: Yes (Glasses) Questionnaire PHQ-9 Over the last 2 weeks, how often have you been bothered by any of the following problems? 1. Little interest or pleasure in doing things: not at all 2. Feeling down, depressed, or hopeless: not at all 3. Trouble falling or staying asleep, or sleeping too much: not at all 4. Feeling tired or having little energy: not at all 5. Poor appetite or overeating: not at all 6. Feeling bad about yourself - or that you are a failure or have let yourself or your family down: not at all 7. Trouble concentrating on things, such as reading the newspaper or watching television: not at all 8. Moving or speaking so slowly that other people could have noticed. Or the opposite - being so fidgety or restless that you have been moving around a lot more than usual: not at all 9. Thoughts that you would be better off or of hurting yourself in some way: not at all Total score: 0 Depression Screening Interpretation: Negative Depression Screening Done: Yes Source: Developed by Drs. Murtaza Thakur, Angle Jackson, David Morales and colleagues, with an educational damari from [employer] Thrive Questionnaire Date Thrive assessed: 04/17/24 Are you currently unemployed and looking for a job?: No AUDIT C Alcohol Use Questionnaire (AUDIT-C) 1. How often do you have a drink containing alcohol?: Never Total Score: 0 Score Reviewed/Action Taken: No KENTON-7 AMB Questionnaire KENTON-7 Date KENTON - 7 assessed: 07/18/24 Feeling nervous, anxious, or on edge: 0 = Not at all Not being able to stop or control worryin = Not at all Worrying too much about different things: 0 = Not at all Trouble relaxin = Not at all Being so restless that it is hard to sit still: 0 = Not at all Becoming easily annoyed or irritable: 0 = Not at all Feeling afraid as if something awful might happen: 0 = Not at all Total KENTON-7 score (0-4 normal; 5-9 mild; 10-14 moderate; 15-21 severe): 0 Source: Developed by Drs. Murtaza Thakur, David Leone and colleagues, with an educational damari from [employer] KENTON-7 Assessment Billing KENTON-7 Assessment Tool: KENTON-7 Assessment 31034 Review of Systems Const Denies chills, Denies headache(s) and Denies weight loss ENT Denies headache(s) Card Denies chest pain, Denies syncope, Denies irregular heart rhythm and Denies dyspnea Resp Denies chest congestion, Denies cough and Denies dyspnea GI Denies abdominal pain, Denies change in stool character, Denies nausea and Denies vomiting Musc Denies deformity and Denies joint swelling Neuro Denies syncope and Denies headache(s) Physical exam (Primary Care) Vital Signs: Last Vital Signs Pulse 71 07/18/24 11:51 BP 134/88 07/18/24 11:51 Pulse Ox 96 07/18/24 11:51 Oxygen Delivery Method Room Air 07/18/24 11:51 BMI result Body Mass Index 33.1 Tobacco/Smoking Status: Tobacco use Status Tobacco use date assessed 04/17/24 07/18/24 11:55 Patient Tobacco Use Status Never used Tobacco 07/18/24 11:55 Tobacco use type Cigarette 07/18/24 12:01 e-Cigarette/Vaping Use Never Used 07/18/24 11:55 PHQ-9: PHQ-9 Score PHQ-9: Total score 0 07/18/24 12:01 Depression Screening Interpretation: Negative Thrive Assessment: Date of Thrive Assessment Date Thrive assessed 04/17/24 07/18/24 11:55 Const General: cooperative, comfortable, no acute distress and alert Neck Neck: Yes no lymphadenopathy Thyroid: Thyroid normal Resp Effort & Inspection: normal respiratory effort Auscultation: clear to auscultation bilaterally Percussion: percussion normal Cardio Jugular venous distension: no JVD Palpation: normal PMI Rate: regular rate Rhythm: regular rhythm Heart sounds: S1 normal heart sound present and S2 normal heart sound present GI Inspection: Yes normal to inspection Palpation (GI): No hepatosplenomegaly present Skin General skin exam: no rashes or lesions noted Extrem General: Yes no clubbing, cyanosis or edema Assessment and Plan Assessment & Plan (1) Hypertension: Code(s): I10 - Essential (primary) hypertension Plan: stable; same rx Coding Level of Care Code Est Pt Level 3 (18070) Diagnoses Hypertension I10 Additional Codes KENTON-7 Assessment Billing - KENTON-7 Assessment Tool: KENTON-7 Assessment [id number] ([id number])
[2024-07-18 11:51] VITALS: BP 134/88; PULSE 71; O2SAT 96; BMI 33.1
== END 2024-07-18 13:16 | disposition home or self-care (01) ==
PROVIDERS: PCP Internal Medicine; Visit Provider Internal Medicine
DX: I10 Essential (primary) hypertension (principal)

== ENCOUNTER → 2024-07-18 11:47 | Outpatient (BNVA) | payer MEDICARE, MEDICAID, SELFPAY | PROVIDERS: PCP Internal Medicine; Visit Provider Internal Medicine | DX: I10 Essential (primary) hypertension (principal) | CPT/HCPCS: 96127; 99212 ==